=== PATIENT | male | born 1975 | race Two or more races ===

== ENCOUNTER 2017-06-06 16:17 | Emergency (ER) | payer MEDICAID ==
[2017-06-06 16:28] VITALS: RESP 18
--- NOTE | 2017-06-06 16:36 | EDPHY ---
H & P Time Seen by Provider: 06/06/17 16:24 HPI/ROS: Chief complaint. Possible pneumonia HPI. 41-year-old male here by EMS with cough for 4 days. He has had upper respiratory congestion. He had a headache. His cough is nonproductive. Has no chest pain. Apparently he saw a practitioner in [place] and was found to have low oxygen saturation. He feels much better now. He has had no recent travel or known exposures to Infectious Disease. He has had pneumonia in the past. ROS Constitutional. no fever/chills, no weakness Eyes. no problems with vision ENT. Congestion Cardiovascular. no chest pain Respiratory. Cough Abdominal. no abdominal pain, no nausea/vomiting, no diarrhea . no problems urinating MS. no calf pain/swelling, no neck/back pain, no joint pain Skin. no rash Lymph. no swollen glands Neuro. no headache, no dizziness, no difficulty walking or with speech Past Medical/Surgical History: Alcoholism, narcotic abuse Social History: Single, nonsmoker, no recent alcohol Physical Exam: General Appearance: Alert well-developed male mild distress vital signs show temp 37.1 degrees, heart rate 103 Eyes: Pupils equal and round no pallor or injection. ENT, tympanic membranes normal. Pharynx slightly injected without exudate. Respiratory: No retractions. Mild inspiratory expiratory rhonchi Cardiovascular: Regular rate and rhythm. Gastrointestinal: Abdomen is soft and nontender, no masses, bowel sounds normal. Neurological: Awake and alert, sensory and motor exams grossly normal. Skin: Warm and dry, no rashes. Musculoskeletal: Neck is supple nontender. Extremities symmetrical, full range of motion. Psychiatric: Patient is oriented X 3, there is no agitation. Constitutional: Initial Vital Signs Temperature (C) 37.1 C 06/06/17 16:26 Heart Rate 103 H 06/06/17 16:26 Respiratory Rate 18 06/06/17 16:26 Blood Pressure 157/105 H 06/06/17 16:26 O2 Sat (%) 97 06/06/17 16:26 O2 Delivery Mode Room Air Allergies/Adverse Reactions: bee venom protein (honey bee) Allergy (Verified 06/06/17 16:25) Home Medications: Medication Instructions Recorded Albuterol Hfa Anes Only [Proair 2 puffs IH QID PRN #1 mdi 06/06/17 Hfa Icu (*)] Azithromycin [Zithromax] 250 mg PO DAILY #6 tab 06/06/17 Oxycodone HCl 06/06/17 Medical Decision Making - Diagnostics Imaging Results: Imaging Impressions Chest X-Ray 06/06/17 16:36 Impression: Patchy bibasilar consolidation/pneumonia right side greater than left as well as subtle patchy infiltrate inferior aspect right upper lobe. Chest x-ray reviewed by me shows patchy right lower lobe infiltrate. Possible slight patchy infiltrate right upper lobe. ED Course/Re-evaluation: Patient is given Zithromax in the emergency department. DuoNeb updraft. Recheck again at 5:40 p.m.. Patient is stable and he tells me he is continuing to feel better. After breathing treatment better air movement. Speaking in full sentences. Oxygen saturation about 93% on room air. Decreased rhonchi Differential Diagnosis: I considered influenza, pneumonia, bronchitis. - Data Points Laboratory Results: 06/06/17 16:35 Nasal Influenza A PCR NEGATIVE FOR FLU A (NEGATIVE) Nasal Influenza B PCR NEGATIVE FOR FLU B (NEGATIVE) Medications Given: Discontinued Medications Albuterol/Ipratropium (Duoneb) 3 ml IH EDNOW ONE Stop: 06/06/17 17:12 Last Admin: 06/06/17 17:14 Dose: 3 ml Azithromycin (Zithromax) 500 mg PO EDNOW ONE PRN Reason: Protocol Stop: 06/06/17 17:11 Last Admin: 06/06/17 17:15 Dose: 500 mg Departure - Departure Disposition: Home, Routine, Self-Care Clinical Impression: Pneumonia Qualifiers: Pneumonia type: due to unspecified organism Laterality: right Lung location: lower lobe of lung Qualified Code(s): J18.1 - Lobar pneumonia, unspecified organism Condition: Good Instructions: Community Acquired Pneumonia (ED) Additional Instructions: Drink plenty of fluids and stay hydrated. Vaporizer or humidifier. Albuterol inhaler using 2 puffs every 4-6 hours to help with breathing and cough Zithromax as antibiotic. Return for worsening breathing. Recheck in 1-2 days if not improving Referrals: Patient,NotPresent [Unknown] - As per Instructions Carlito Saleem MD [Primary Care Provider] - 2-3 days, if not improved Prescriptions: Albuterol Hfa Anes Only [Proair Hfa Icu (*)] 2 puffs IH QID PRN #1 mdi PRN Reason: Short Of Breath/Dyspnea Azithromycin [Zithromax] 250 mg PO DAILY #6 tab
[2017-06-06] MEDS ORDERED: AZITHROMYCIN 250 MG TAB PO ONE (17:10)
[2017-06-06] MEDS ORDERED: IPRATROPIUM/ALBUTEROL 3 ML DEYVIAL IH ONE (17:11)
[2017-06-06 17:53] VITALS: BP 134/79; PULSE 93; TEMP 98.4; O2SAT 94
== END 2017-06-06 17:53 | disposition home or self-care (01) ==
DX: J18.9 Pneumonia, unspecified organism (principal)